=== PATIENT | female | born 1955 | race Caucasian/White ===

== ENCOUNTER → 2016-07-11 | Outpatient (REF) | payer BC ==
[2016-07-11 18:22] LABS: THYROID PEROXIDASE ANTIBODY > 1300.0 U/ML (<60.0)
== END ==
LOC: M LAB REF 16:33
PROVIDERS: ATTEND Nurse Practitioner Adult Health
DX: R94.6 Abnormal results of thyroid function studies (principal)

== ENCOUNTER → 2016-09-02 | Outpatient (CLI) | payer BC ==
[2016-09-02 10:10] LABS: LUTEINIZING HORMONE 27.3 mIU/mL
[2016-09-02 10:11] LABS: FOLLICLE STIMULATING HORMONE 62.2 mIU/mL
== END ==
LOC: M LAB 08:00
PROVIDERS: ATTEND Nurse Practitioner Adult Health
DX: H04.129 Dry eye syndrome of unspecified lacrimal gland (principal); E06.9 Thyroiditis, unspecified

== ENCOUNTER → 2016-09-26 | Outpatient (REF) ==
--- NOTE | 2016-09-26 09:05 | REP ---
Clinical: Positive PPD test . Comparison: 12/05/2015 . Technique: PA and lateral. Findings: The mediastinum and cardiac silhouette are normal. The lung [place] are clear and without acute consolidation, effusion, or pneumothorax. Small focal scarring in the left lower lung zone remains stable. The skeletal structures are intact and normal. Impression: 1. No acute cardiopulmonary process. Signed by Herman Gr MD 09/26/2016 08:56 A
== END ==
LOC: M LAB 08:13
PROVIDERS: ATTEND Nurse Practitioner Adult Health
DX: R76.11 Nonspecific reaction to tuberculin skin test without active tuberculosis (principal)

== ENCOUNTER → 2017-01-05 | Outpatient (REF) | payer BC | LOC: M LAB REF 17:11 | PROVIDERS: ATTEND Nurse Practitioner Women's Health | DX: N39.0 Urinary tract infection, site not specified (principal) ==

== ENCOUNTER → 2017-03-26 | Outpatient (CLI) | payer BC | LOC: M RAD 14:06 | DX: R92.8 Other abnormal and inconclusive findings on diagnostic imaging of breast (principal) | CPT/HCPCS: 76642 ==

== ENCOUNTER → 2017-09-02 | Outpatient (REF) | payer BC | LOC: M LAB REF 15:45 | DX: D24.2 Benign neoplasm of left breast (principal) ==

== ENCOUNTER → 2017-10-18 | Outpatient (CLI) | payer BC | LOC: M WUC 12:43 | DX: R22.31 Localized swelling, mass and lump, right upper limb (principal) | CPT/HCPCS: 73140 ==

== ENCOUNTER → 2017-10-22 | Outpatient (REF) | payer BC ==
[2017-10-22 19:30] LABS: URIC ACID 4.5 MG/DL (2.6-6.0)
== END ==
LOC: M LAB REF 17:15
DX: M10.9 Gout, unspecified (principal)
CPT/HCPCS: 84550

== ENCOUNTER → 2017-12-04 | Outpatient (REF) | payer BC ==
[2017-12-04 18:34] LABS: C REACTIVE PROTEIN QUANTITATIV < 0.30 MG/DL (0.00-0.30)
[2017-12-04 18:34] LABS: RHEUMATOID FACTOR QUANT < 10.0 IU/ML (<15.0)
[2017-12-08 00:08] LABS: CYCLIC CITRULLINATED PEPTIDE 8 units (0-19)
[2017-12-08 00:08] LABS: ANTINUCLEAR ANTIBODIES DIRECT Negative (Negative)
== END ==
LOC: M LAB REF 16:32
DX: M25.50 Pain in unspecified joint (principal)
CPT/HCPCS: 86140

== ENCOUNTER → 2018-01-27 | Outpatient (REF) | payer BC ==
[2018-01-27 17:52] LABS: APPEARANCE, URINE HAZY (CLEAR); BACTERIA, URINE AUTO NEGATIVE (NEGATIVE); BILIRUBIN, URINE AUTO NEGATIVE (NEGATIVE); BLOOD, URINE BLOOD NEGATIVE (NEGATIVE); COLOR, URINE YELLOW (YELLOW); GLUCOSE, URINE (UA) AUTO NEGATIVE (NEGATIVE); KETONE, URINE AUTO NEGATIVE (NEGATIVE); LEUKOCYTE ESTERASE, URINE AUTO 3+ (NEGATIVE); NITRITE, URINE AUTO NEGATIVE (NEGATIVE); PROTEIN, URINE AUTO NEGATIVE (NEGATIVE); RBC, URINE AUTO 3 /HPF (0-3); SPECIFIC GRAVITY URINE AUTO 1.015 (1.002-1.035); SQUAMOUS EPITHELIAL CELL UR AU 3 /HPF (0-6); UROBILINOGEN, URINE AUTO 0.2 mg/dL (0.0-2.0); WBC, URINE AUTO 18 /HPF (0-3)
== END ==
LOC: M LAB REF 16:52
DX: N39.0 Urinary tract infection, site not specified (principal)
CPT/HCPCS: 81001

== ENCOUNTER → 2018-01-27 | Outpatient (REF) | payer BC ==
[2018-01-27 18:45] LABS: VITAMIN B12 LEVEL 795 PG/ML (247-911)
[2018-01-30 00:06] LABS: Lyme Disease IgG/IgM Antibodie <0.91 ISR (0.00-0.90); Lyme Disease IgM Ab Quantitati <0.80 index (0.00-0.79)
== END ==
LOC: M LAB REF 17:18
DX: K14.0 Glossitis (principal)
CPT/HCPCS: 82607

== ENCOUNTER → 2018-04-07 | Outpatient (REF) | payer BC | LOC: M LAB REF 15:44 | PROVIDERS: ATTEND Orthopaedic Surgery | DX: R22.31 Localized swelling, mass and lump, right upper limb (principal); L94.8 Other specified localized connective tissue disorders ==

== ENCOUNTER → 2018-08-18 | Outpatient (CLI) | payer BC ==
--- NOTE | 2018-08-18 09:58 | REP ---
Right hand series: Four views. History: Right hand pain. Findings: Overall mineralization pattern is normal. There is mild osteoarthritic spurring at the DIP and PIP joints of the of the fingers and the IP joint of the thumb. No erosive arthropathy is seen. Bones, joints and soft tissues are otherwise unremarkable. Impression: Osteoarthritic changes primarily at the DIP and PIP joints of the fingers and the IP joint of the thumb. Electronically Signed by Shyam Bautista MD 08/18/2018 12:31 P
== END ==
LOC: M RAD 09:06
PROVIDERS: ATTEND Nurse Practitioner Adult Health
DX: M79.641 Pain in right hand (principal)

== ENCOUNTER → 2020-06-27 | Outpatient (REF) | payer BC ==
[2020-06-27 19:06] LABS: C REACTIVE PROTEIN QUANTITATIV < 0.30 MG/DL (0.00-0.30); RHEUMATOID FACTOR QUANT < 10.0 IU/ML (<15.0)
[2020-06-29 23:06] LABS: ANTINUCLEAR ANTIBODIES DIRECT Negative (Negative); CYCLIC CITRULLINATED PEPTIDE 4 units (0-19)
== END ==
LOC: M LAB REF 16:45
PROVIDERS: ATTEND Nurse Practitioner Adult Health
DX: M25.551 Pain in right hip (principal); R35.0 Frequency of micturition

== ENCOUNTER → 2020-06-29 | Outpatient (CLI) | payer BC ==
--- NOTE | 2020-06-29 13:09 | REP ---
INDICATION: PAIN. COMPARISON: Plain film lumbar spine 03/14/2016. TECHNIQUE: Plain film series of the lumbar spine includes AP lateral and obliques. FINDINGS: No evidence of acute fracture or malalignment. Vertebral heights and disc heights overall preserved however there appears to be chronic compression wedging at T12. There is atherosclerotic calcification of the aorta and distal vasculature. Soft tissues appear unremarkable. No definite findings of foraminal stenosis however oblique views are limited for this evaluation. When compared to the prior study of 03/14/2016 wedging at T12 appears progressed, now with perhaps 30% loss of height. IMPRESSION: 1. No definite acute findings. 2. Diffuse degenerative changes. 3. Wedge deformity at T12 likely represents a chronic compression fracture, appears progressed from the comparison study 03/14/2016. 4. If symptoms persist, MRI recommended. <Electronically signed by Polo Cruz > 06/29/20 [id number]
--- NOTE | 2020-06-29 13:55 | REP ---
INDICATION: PAIN. COMPARISON: None. TECHNIQUE: Two views right hip. FINDINGS: There is no acute fracture or dislocation. There are moderate arthritic changes at the hip joint with joint space narrowing, subchondral sclerosis and spurring. Mild vascular calcifications are seen in the pelvis. IMPRESSION: Moderate arthritic changes right hip joint. <Electronically signed by Daniel Sheriff > 06/29/20 [id number]
== END ==
LOC: M WUC 12:07
PROVIDERS: ATTEND Nurse Practitioner Adult Health
DX: M54.6 Pain in thoracic spine (principal); M16.11 Unilateral primary osteoarthritis, right hip

== ENCOUNTER → 2020-10-31 | Outpatient (REF) | payer BC ==
[2020-10-31 17:23] LABS: TOTAL PROTEIN 7.3 GM/DL (6.4-8.2)
[2020-11-01 13:54] LABS: ALBUMIN 4.26 GM/DL (3.29-5.55); ALBUMIN % 58.4 % (55.8-66.1); ALPHA-1-GLOBULIN % 4.1 % (2.9-4.9); ALPHA-2-GLOBULINS 0.73 GM/DL (0.42-0.99); BETA-1-GLOBULINS 0.42 GM/DL (0.28-0.60); BETA-1-GLOBULINS % 5.8 % (4.7-7.2); BETA-2-GLOBULINS 0.42 GM/DL (0.19-0.55); BETA-2-GLOBULINS % 5.7 % (3.2-6.5); GAMMA GLOBULINS 1.17 GM/DL (0.65-1.58)
== END ==
LOC: M LAB REF 16:17
PROVIDERS: ATTEND Nurse Practitioner Adult Health
DX: R74.8 Abnormal levels of other serum enzymes (principal); R80.9 Proteinuria, unspecified

== ENCOUNTER 2022-05-14 08:07 | Emergency (ER) | payer BC, MEDICARE ==
[~2022-05-14] VITALS: Ht 149.9 cm; Wt 81.1 kg
[2022-05-14] MEDS ORDERED: ROSU20TA5 (08:15)
[2022-05-14] MEDS ORDERED: MELO7.5T35 (08:15)
[2022-05-14] MEDS ORDERED: LEVO75TA4 (08:15)
[2022-05-14] MEDS ORDERED: NS 1,000 ML IV ONE (08:35)
[2022-05-14] MEDS ORDERED: MORPHINE 4 MG/ML 1ML VIAL IV ONE (08:40)
[2022-05-14] MEDS ORDERED: ONDANSETRON 4MG 2ML VIAL IV ONE ×2 (08:40→13:30)
[2022-05-14 09:37] LABS: BASO # 0.1 10^3/uL (0.0-0.2); BASO % 0.4 % (0.0-1.0); EOS % 0.2 % (0.0-3.0); HEMATOCRIT 49.3 % (36.0-47.0); LYMPH # 1.1 10^3/uL (1.5-5.0); MEAN CORPUSCULAR HEMOGLOBIN 28.7 pg (27.0-33.0); MEAN CORPUSCULAR HGB CONC 32.5 g/dl (32.0-36.5); MEAN CORPUSCULAR VOLUME 88.5 fl (80.0-96.0); MONO # 1.3 10^3/uL (0.0-0.8); MONO % 8.2 % (2.0-8.0); NEUTROPHILS # 12.9 10^3/uL (1.5-8.5); NEUTROPHILS % 83.5 % (36.0-66.0); PLATELET COUNT, AUTOMATED 416 10^3/uL (150-450); RED BLOOD COUNT 5.57 10^6/uL (4.00-5.40); WHITE BLOOD COUNT 15.4 10^3/uL (4.0-10.0)
[2022-05-14] MEDS ORDERED: ISOVUE-370 76% 100ML VIAL As Ordered ONE (09:41)
[2022-05-14 10:08] LABS: RSV AMPLIFICATION NEGATIVE (NEGATIVE)
[2022-05-14 10:14] LABS: BILIRUBIN,DIRECT 0.2 MG/DL (<0.4); BILIRUBIN,TOTAL 0.6 MG/DL (0.3-1.2); TOTAL PROTEIN 7.5 G/DL (5.7-8.2)
[2022-05-14] MEDS ORDERED: GI COCKTAIL 50ML BTL(HYOSCYAMINE/MAALOX/LIDOCAINE VISCOUS)(1:3:1) PO ONE (13:30)
[2022-05-14] MEDS ORDERED: OMEP40CA4 PO (14:37)
[2022-05-14] MEDS ORDERED: SUCR1SS PO (14:43)
[2022-05-14 14:55] VITALS: BP 138/64
== END 2022-05-14 15:07 | disposition home or self-care (01) ==
LOC: M ED 08:07
DX: K52.9 Noninfective gastroenteritis and colitis, unspecified (principal); K21.9 Gastro-esophageal reflux disease without esophagitis; N28.1 Cyst of kidney, acquired; K57.90 Diverticulosis of intestine, part unspecified, without perforation or abscess without bleeding; E86.0 Dehydration; Z88.0 Allergy status to penicillin
CPT/HCPCS: 71046; 74177; 76705; 80047; 80076; 82150; 83605; 83690; 85025; 87486; 87507; 87581; 87631; 87633; 87798; 93005; 96361; 96374; 96375; 96376; 99284; J2270; J2405; Q9967

== ENCOUNTER → 2022-08-07 | Outpatient (REF) | payer MEDICARE, BC ==
[~2022-08-07] MED LIST: LEVO75TA4; MELO7.5T35; OMEP40CA4 PO; ROSU20TA5; SUCR1SS PO
== END ==
LOC: M SFHCWAGY 17:09
PROVIDERS: ATTEND Nurse Practitioner Family
DX: N76.0 Acute vaginitis (principal)

== ENCOUNTER → 2022-08-07 | Outpatient (REF) | payer MEDICARE, BC | LOC: M SFHCWAGY 15:32 | PROVIDERS: ATTEND Nurse Practitioner Family | DX: Z12.4 Encounter for screening for malignant neoplasm of cervix (principal); N95.2 Postmenopausal atrophic vaginitis ==

== ENCOUNTER → 2022-08-12 | Outpatient (CLI) | payer MEDICARE | LOC: M WHC 08:08 | PROVIDERS: ATTEND Physician Assistant Medical | DX: N64.4 Mastodynia (principal) | CPT/HCPCS: 76642; 77066; G0279 ==

== ENCOUNTER → 2022-08-13 | Outpatient (REF) | payer MEDICARE | LOC: M LAB REF 16:22 | PROVIDERS: ATTEND Nurse Practitioner Adult Health | DX: R30.0 Dysuria (principal) ==

== ENCOUNTER 2023-02-11 08:51 | Day surgery (SDC) | payer MEDICARE ==
[~2023-02-11] VITALS: Ht 149.9 cm; Wt 76.7 kg
[~2023-02-11 08:51] MED LIST changes: -LEVO75TA4; +LEVO75TA4 PO; -MELO7.5T35; +MELO7.5T35 PO; +NS 1,000 ML IV ONE; -ROSU20TA5; +ROSU20TA61 PO; +SEMA1PEN2 SQ
[2023-02-11] MEDS ORDERED: fentaNYL 100 MCG/2 ML INJECTION As Ordered ONE (09:10)
[2023-02-11] MEDS ORDERED: propofoL 200 MG/20 ML VIAL As Ordered ONE ×2 (09:10→11:02)
[2023-02-11] MEDS ORDERED: LIDOCAINE 2% 100MG/5ML SDV (FOR ANES.) As Ordered ONE (09:10)
[2023-02-11 11:30] VITALS: BP 133/75; O2SAT 98
== END 2023-02-11 11:37 | disposition home or self-care (01) ==
LOC: M OPP 08:51
PROVIDERS: ATTEND Internal Medicine Gastroenterology
DX: K63.5 Polyp of colon (principal); K21.00 Gastro-esophageal reflux disease with esophagitis, without bleeding; K64.0 First degree hemorrhoids; K57.30 Diverticulosis of large intestine without perforation or abscess without bleeding; E11.9 Type 2 diabetes mellitus without complications; E03.9 Hypothyroidism, unspecified; E78.00 Pure hypercholesterolemia, unspecified; Z79.890 Hormone replacement therapy; Z79.899 Other long term (current) drug therapy; G47.30 Sleep apnea, unspecified; Z87.891 Personal history of nicotine dependence; Z88.0 Allergy status to penicillin
CPT/HCPCS: 43239; 45385; 88305; J3010

== ENCOUNTER → 2023-08-13 | Outpatient (CLI) | payer MEDICARE ==
[~2023-08-13] MED LIST changes: -NS 1,000 ML IV ONE
== END ==
LOC: M WHC 14:58
PROVIDERS: ATTEND Nurse Practitioner Family
DX: Z12.31 Encounter for screening mammogram for malignant neoplasm of breast (principal)

== ENCOUNTER → 2023-08-13 | Outpatient (REF) | payer MEDICARE | LOC: M SFHCWAGY 16:49 | PROVIDERS: ATTEND Nurse Practitioner Family | DX: N73.9 Female pelvic inflammatory disease, unspecified (principal) ==

== ENCOUNTER → 2023-11-04 | Outpatient (REF) | payer MEDICARE | LOC: M SFHCWAGY 16:48 | PROVIDERS: ATTEND Nurse Practitioner Family | DX: R30.0 Dysuria (principal); N73.9 Female pelvic inflammatory disease, unspecified ==

== ENCOUNTER → 2023-11-24 | Outpatient (CLI) | payer MEDICARE | LOC: M WHC 14:13 | PROVIDERS: ATTEND Nurse Practitioner Family | DX: R14.0 Abdominal distension (gaseous) (principal); Z80.41 Family history of malignant neoplasm of ovary ==

== ENCOUNTER → 2023-11-24 | Outpatient (CLI) | payer MEDICARE | LOC: M PLALAB 14:59 | PROVIDERS: ATTEND Nurse Practitioner Family | DX: Z85.44 Personal history of malignant neoplasm of other female genital organs (principal); Z80.41 Family history of malignant neoplasm of ovary ==

== ENCOUNTER → 2024-08-08 | Outpatient (CLI) | payer MEDICARE ==
[~2024-08-08] MED LIST changes: -ROSU20TA61 PO; +ROSU20TA86 PO
== END ==
LOC: M WHC 13:52
PROVIDERS: ATTEND Physician Assistant Medical
DX: N64.4 Mastodynia (principal)
CPT/HCPCS: 77066; G0279

== ENCOUNTER → 2024-09-06 | Outpatient (CLI) | payer MEDICARE | LOC: M PLALAB 09:22 | PROVIDERS: ATTEND Nurse Practitioner Family | DX: R93.41 Abnormal radiologic findings on diagnostic imaging of renal pelvis, ureter, or bladder (principal); Z80.41 Family history of malignant neoplasm of ovary ==

== ENCOUNTER → 2024-10-05 | Outpatient (CLI) | payer MEDICARE | LOC: M WHC 12:53 | PROVIDERS: ATTEND Surgery | DX: N64.4 Mastodynia (principal) ==

== ENCOUNTER → 2024-10-31 | Outpatient (REF) | payer MEDICARE | LOC: M SFHCWAGY 10:30 | PROVIDERS: ATTEND Nurse Practitioner Family | DX: N89.8 Other specified noninflammatory disorders of vagina (principal) ==

== ENCOUNTER → 2024-10-31 | Outpatient (REF) | payer MEDICARE | LOC: M PLALAB 13:34 | PROVIDERS: ATTEND Nurse Practitioner Family | DX: Z53.9 Procedure and treatment not carried out, unspecified reason (principal) ==

== ENCOUNTER → 2024-12-28 | Outpatient (REF) | payer MEDICARE | LOC: M LAB REF 16:45 | PROVIDERS: ATTEND Physician Assistant Medical | DX: N39.0 Urinary tract infection, site not specified (principal) ==

== ENCOUNTER → 2025-01-05 | Outpatient (CLI) | payer MEDICARE | LOC: M RAD 13:40 | PROVIDERS: ATTEND Physician Assistant Medical | DX: Z12.2 Encounter for screening for malignant neoplasm of respiratory organs (principal); F17.211 Nicotine dependence, cigarettes, in remission; R91.8 Other nonspecific abnormal finding of lung field; I25.10 Atherosclerotic heart disease of native coronary artery without angina pectoris; I70.0 Atherosclerosis of aorta ==